=== PATIENT | female | born 1985 | race Caucasian/White ===

== ENCOUNTER → 2018-07-14 | Outpatient (REF) | payer OTHER ==
[2018-07-14 18:45] LABS: HEMATOCRIT 41.2 % (36.0-47.0); HEMOGLOBIN 13.9 g/dl (12.0-15.5); MEAN CORPUSCULAR HEMOGLOBIN 28.7 pg (27.0-33.0); MEAN CORPUSCULAR HGB CONC 33.7 g/dl (32.0-36.5); MEAN CORPUSCULAR VOLUME 84.9 fl (80.0-96.0); PLATELET COUNT, AUTOMATED 242 10^3/uL (150-450); RED BLOOD COUNT 4.85 10^6/uL (4.00-5.40); RED CELL DISTRIBUTION WIDTH 12.7 % (11.5-14.5); WHITE BLOOD COUNT 9.4 10^3/uL (4.0-10.0)
[2018-07-14 19:19] LABS: HCG, SERUM QUANTITATIVE 185906 MIU/ML
[2018-07-15 12:49] LABS: HBsAg Prenatal NEGATIVE (NEGATIVE)
[2018-07-15 13:17] LABS: HEPATITIS C VIRUS ABY INDEX 0.2 INDEX (<0.8)
[2018-07-15 13:17] LABS: HIV 1&2 SCREEN CENTAUR NEGATIVE (NEGATIVE)
[2018-07-15 13:50] LABS: RUBELLA IgG QUALITATIVE IMMUNE (IMMUNE)
== END ==
LOC: M LAB REF 17:24
DX: O36.80X0 Pregnancy with inconclusive fetal viability, not applicable or unspecified (principal); Z32.01 Encounter for pregnancy test, result positive

== ENCOUNTER → 2018-12-01 | Outpatient (CLI) | payer OTHER ==
[2018-12-01 13:03] LABS: HEMATOCRIT 33.1 % (36.0-47.0); HEMOGLOBIN 11.3 g/dl (12.0-15.5); MEAN CORPUSCULAR HEMOGLOBIN 29.2 pg (27.0-33.0); MEAN CORPUSCULAR HGB CONC 34.1 g/dl (32.0-36.5); MEAN CORPUSCULAR VOLUME 85.5 fl (80.0-96.0); PLATELET COUNT, AUTOMATED 210 10^3/uL (150-450); RED BLOOD COUNT 3.87 10^6/uL (4.00-5.40)
== END ==
LOC: M LAB 10:52
PROVIDERS: ATTEND Obstetrics & Gynecology
DX: Z34.02 Encounter for supervision of normal first pregnancy, second trimester (principal); Z36.89 Encounter for other specified antenatal screening

== ENCOUNTER → 2019-01-26 | Outpatient (REF) | payer OTHER | LOC: M LAB REF 17:05 | PROVIDERS: ATTEND Obstetrics & Gynecology | DX: Z34.03 Encounter for supervision of normal first pregnancy, third trimester (principal); Z3A.00 Weeks of gestation of pregnancy not specified ==

== ENCOUNTER → 2019-02-04 | Outpatient (REF) | payer OTHER | LOC: M LAB REF 17:26 | PROVIDERS: ATTEND Obstetrics & Gynecology | DX: Z34.03 Encounter for supervision of normal first pregnancy, third trimester (principal) ==

== ENCOUNTER 2019-03-01 00:48 | Inpatient (IN) | payer OTHER ==
[2019-03-01] VITALS (29 sets, daily range): BP systolic 94–153; BP diastolic 50–93
[~2019-03-01] VITALS: Ht 165.1 cm; Wt 88.2 kg
[2019-03-01] MEDS ORDERED: PNV1TABL5 PO (01:06)
[2019-03-01] MEDS ORDERED: LACTATED RINGER'S 1000 ML IV STA (01:29)
[2019-03-01 02:25] LABS: HEMATOCRIT 32.9 % (36.0-47.0); MEAN CORPUSCULAR HEMOGLOBIN 28.9 pg (27.0-33.0); MEAN CORPUSCULAR HGB CONC 33.4 g/dl (32.0-36.5); MEAN CORPUSCULAR VOLUME 86.4 fl (80.0-96.0); PLATELET COUNT, AUTOMATED 163 10^3/uL (150-450); RED BLOOD COUNT 3.81 10^6/uL (4.00-5.40); WHITE BLOOD COUNT 12.4 10^3/uL (4.0-10.0)
[2019-03-01] MEDS ORDERED: FENTANYL 2MCG/ML ROPIVACAINE 0.2% IN 0.9% NACL 100ML IVBAG As Ordered ONE (02:43)
[2019-03-01] MEDS ORDERED: NALOXONE INJ 0.4 MG/1 ML VIAL (J2310) IV PRN (03:48)
[2019-03-01] MEDS ORDERED: FENTANYL/ROPIVACAINE/NACL BAG 100 ML EPIDURAL SCH (03:48)
[2019-03-01] MEDS ORDERED: EPIDURAL COMMENT XX SCH (03:48)
[2019-03-01] MEDS ORDERED: diphenhydrAMINE INJ 50MG/ML VIAL (J1200) IV PRN (03:48)
[2019-03-01] MEDS ORDERED: EPIDURAL/PCA KEYS XX PRN (03:48)
[2019-03-01] MEDS ORDERED: ONDANSETRON 4MG/2ML VIAL (J2405) IV PRN (03:48)
[2019-03-01] MEDS ORDERED: REFRIGERATOR IV KEYS XX PRN (03:48)
[2019-03-01] MEDS ORDERED: LACTATED RINGER'S 1000 ML IV PRN (03:48)
[2019-03-01] MEDS: ePHEDrine SULFATE 25 MG/5 ML(5MG/ML) SYRINGE IV PRN ×2 (06:42→06:55)
[2019-03-01] MEDS ORDERED: LR 1,000 ML IV SCH (07:30)
[2019-03-01] MEDS ORDERED: OXYTOCIN 30 UNITS IN 0.9% NaCl 500ML IV BAG (J2590) As Ordered ONE (08:09)
[2019-03-01] MEDS ORDERED: OXYTOCIN DRIP 30 UNITS in APPROPRIATE DILUENT 1 EA IV SCH ×2 (08:30→10:01)
--- NOTE | 2019-03-01 09:05 | HPE ---
DATE OF ADMISSION: 03/01/2019 Charlotte is a 33-year-old female 1, para 0 with an estimated date of confinement (EDC) of 02/23/2019, estimated gestational age (EGA) 41 and 2/7 weeks gestation who presented to labor and delivery with gross rupture of membranes. Upon evaluation, she was found to be in early labor. At this point the decision was made for admission. Her record reviewed which was essentially unremarkable. Her lab blood type is A+, rubella immune, hepatitis negative, HIV negative, GC, chlamydia negative, 1-hour sugar testing was within normal limits. Her GBS is negative. PAST MEDICAL HISTORY: Denies. PAST SURGICAL HISTORY: Ransom tooth extraction. SOCIAL HISTORY: She is . Denies any alcohol, drug or cigarette smoking. REVIEW OF SYSTEMS: Unremarkable. MEDICATIONS: vitamins. ALLERGIES: NO KNOWN DRUG ALLERGIES. PHYSICAL EXAMINATION: Obese female in no acute distress. Abdomen: Soft, nontender, nondistended. Extremities: No clubbing, cyanosis or edema. Vaginal exam: Gross rupture of membranes clear fluid. Cervix is 2-3 cm dilated, 80% effaced, fetus at -2 station in vertex position. Tracing reviewed, category 1 tracing contractions every 3-4 minutes. ASSESSMENT: Intrauterine at 41+ weeks gestation with spontaneous rupture of membranes and early labor. PLAN: Admit to labor and delivery. Routine labs sent. Pain management discussed. The patient opts for an epidural. Will continue to monitor. Anticipate delivery.
[2019-03-01 10:11] LABS: CORD GAS ABE A -3.9; CORD GAS HCO3 A 23.8 MEQ/L; CORD GAS O2 SAT A 33.5 %; CORD GAS PCO2 A 53.1 mmHg; CORD GAS PH A 7.269 UNITS; CORD GAS PO2 A 18.8 mmHg; CORD GAS SBC A 19.7 MEQ/L; CORD GAS TCO2 A 25.4 MEQ/L
[2019-03-01 10:13] LABS: CORD GAS ABE V -3.5; CORD GAS HCO3 V 20.5 MEQ/L; CORD GAS O2 SAT V 74.6 %; CORD GAS PCO2 V 34.6 mmHg; CORD GAS PH V 7.391 UNITS; CORD GAS PO2 V 32.1 mmHg; CORD GAS TCO2 V 21.6 MEQ/L
[2019-03-01] MEDS ORDERED: ACETAMINOPHEN TAB 650MG DOSE (2X325MG) PO PRN (10:15)
[2019-03-01] MEDS ORDERED: DOCUSATE SODIUM 100 MG CAP PO PRN (10:15)
[2019-03-01] MEDS ORDERED: IBUPROFEN 600 MG TAB PO PRN (10:15)
[2019-03-01] MEDS ORDERED: METHYLERGONOVINE MALEATE 0.2 MG TAB PO PRN (10:15)
[2019-03-01] MEDS ORDERED: ACETAMINOPHEN 500 MG TAB PO PRN (10:15)
[2019-03-01] MEDS ORDERED: IBUPROFEN 800 MG TAB PO PRN (10:15)
[2019-03-01] MEDS ORDERED: RHOGAM 300 MCG (1500 IU) INJ (J2790) IM SCH (10:15)
[2019-03-01] MEDS ORDERED: MEASLES,MUMPS,RUBELLA VACCINE INJ (MMR-II) (90707) SC SCH (10:15)
[2019-03-01] MEDS ORDERED: DIBUCAINE 1% OINTMENT 30GM TOP PRN (10:15)
[2019-03-02 06:12] VITALS: BP 121/76
[2019-03-02] MEDS ORDERED: PRENATAL VITAMINS CHEWABLE TABLET PO SCH (09:00)
== END 2019-03-02 17:00 | disposition home or self-care (01) | DRG 560 ==
LOC: M LDO 00:48 → M LDI 01:40 → M OBS 12:17
PROVIDERS: ADMIT Obstetrics & Gynecology; ATTEND Obstetrics & Gynecology
PROC: 10E0XZZ Delivery of Products of Conception, External Approach (ICD-10-PCS; principal; 2019-03-01)
PROC: 0HQ9XZZ Repair Perineum Skin, External Approach (ICD-10-PCS; 2019-03-01)
DX: O48.0 Post-term pregnancy (principal); O70.0 First degree perineal laceration during delivery; Z37.0 Single live birth; Z3A.41 41 weeks gestation of pregnancy

== ENCOUNTER → 2019-12-02 | Outpatient (REF) | payer BC ==
[~2019-12-02] MED LIST: KP P1TAB PO
[2019-12-02 12:45] LABS: ALBUMIN 4.4 GM/DL (3.2-5.2); ALT/SGPT 21 U/L (12-78); BILIRUBIN,TOTAL 0.4 MG/DL (0.2-1.0); BLOOD UREA NITROGEN 12 MG/DL (7-18); CALCIUM LEVEL 9.1 MG/DL (8.5-10.1); CARBON DIOXIDE LEVEL 32 MEQ/L (21-32); CHLORIDE LEVEL 105 MEQ/L (98-107); CHOLESTEROL LEVEL 206 MG/DL (<200); CHOLESTEROL RISK RATIO 3.029 (<5); CREATININE FOR GFR 0.65 MG/DL (0.55-1.30); GLOMERULAR FILTRATION RATE > 60.0 (>60); GLUCOSE, FASTING 78 MG/DL (70-100); HDL CHOLESTEROL 68 MG/DL (>40); LDL CHOLESTEROL 126 MG/DL (<100); NON-HDL-C 138 MG/DL; POTASSIUM SERUM 4.1 MEQ/L (3.5-5.1); SODIUM LEVEL 140 MEQ/L (136-145); TRIGLYCERIDES LEVEL 59 MG/DL (<150)
== END ==
LOC: M SFHCPLAZ 09:44
PROVIDERS: ATTEND Family Medicine
DX: Z13.1 Encounter for screening for diabetes mellitus (principal); Z13.220 Encounter for screening for lipoid disorders

== ENCOUNTER → 2020-11-28 | Outpatient (REF) | payer BC ==
[2020-11-28 17:27] LABS: HEMATOCRIT 38.7 % (36.0-47.0); HEMOGLOBIN 12.8 g/dl (12.0-15.5); MEAN CORPUSCULAR HEMOGLOBIN 27.6 pg (27.0-33.0); MEAN CORPUSCULAR HGB CONC 33.1 g/dl (32.0-36.5); MEAN CORPUSCULAR VOLUME 83.6 fl (80.0-96.0); PLATELET COUNT, AUTOMATED 215 10^3/uL (150-450); RED BLOOD COUNT 4.63 10^6/uL (4.00-5.40); WHITE BLOOD COUNT 7.5 10^3/uL (4.0-10.0)
[2020-11-28 17:53] LABS: FREE T4 0.99 NG/DL (0.76-1.46); GLUCOSE CHALLENGE TEST 1 HOUR 83 MG/DL (LESS THAN 140)
[2020-11-28 18:06] LABS: HEMOGLOBIN A1c 5.1 %
[2020-11-28 18:36] LABS: HEPATITIS C VIRUS ABY INDEX 0.1 INDEX (<0.8); HIV 1&2 SCREEN CENTAUR NEGATIVE (NEGATIVE)
[2020-11-28 19:48] LABS: CHLAMYDIA DNA AMPLIFICATION NEGATIVE (NEGATIVE); GC DNA AMPLIFICATION NEGATIVE (NEGATIVE)
== END ==
LOC: M PLALAB 14:05
PROVIDERS: ATTEND Advanced Practice Midwife
DX: O26.891 Other specified pregnancy related conditions, first trimester (principal); Z3A.09 9 weeks gestation of pregnancy

== ENCOUNTER → 2020-12-08 | Outpatient (CLI) | payer BC | LOC: M PLALAB 12:24 | PROVIDERS: ATTEND Advanced Practice Midwife | DX: Z34.81 Encounter for supervision of other normal pregnancy, first trimester (principal); Z3A.00 Weeks of gestation of pregnancy not specified ==

== ENCOUNTER → 2020-12-25 | Outpatient (CLI) | payer BC | LOC: M WHC 15:29 | PROVIDERS: ATTEND Obstetrics & Gynecology | DX: Z3A.13 13 weeks gestation of pregnancy (principal) ==

== ENCOUNTER → 2021-01-29 | Outpatient (CLI) | payer BC | LOC: M WHC 10:46 | PROVIDERS: ATTEND Obstetrics & Gynecology | DX: Z34.82 Encounter for supervision of other normal pregnancy, second trimester (principal); Z3A.18 18 weeks gestation of pregnancy ==

== ENCOUNTER → 2021-01-29 | Outpatient (CLI) | payer BC ==
--- NOTE | 2021-01-29 11:50 | REP ---
INDICATION: ANATOMY COMPARISON: None. TECHNIQUE: Transabdominal obstetrical ultrasound with color Doppler evaluation. FINDINGS: Examination demonstrates a single live intrauterine in variable presentation. motion is identified by technologist. Placenta is noted anterior and grade 1 without evidence for placenta previa or abruption. Amniotic fluid volume is normal. Cervix measures 4.3 cm in length and appears closed.. Gestational age by LMP 18 weeks 4 days with DIO 06/28/2021. Gestational age by current measurements 18 weeks 3 days with DIO 06/29/2021. FHR equals 144 beats per minute. BPD: 4.1 cm at 18 weeks 4 days HC: 15.8 cm at 18 weeks 5 days AC: 12.9 cm at 18 weeks 3 days FL: 2.7 cm at 18 weeks 3 days HL: 2.7 cm at there is 18 weeks 3 days HC/AC: 1.23 Estimated weight 240 grams (37thpercentile). Anatomical assessment demonstrates normal structures including cranium, choroid plexus, cavum, cerebellum/posterior fossa, facial features, lungs, four-chamber heart/ventricular outflow tracts, diaphragm, stomach, cord insertion/three-vessel cord, kidneys/bladder, spine, and extremities. IMPRESSION: Single live intrauterine in variable presentation demonstrating appropriate estimated weight. Anatomical assessment is complete and normal. <Electronically signed by Titus Lucas > 01/29/21 0069
== END ==
LOC: M WHC 10:05
PROVIDERS: ATTEND Obstetrics & Gynecology
DX: Z34.82 Encounter for supervision of other normal pregnancy, second trimester (principal)

== ENCOUNTER → 2021-04-10 | Outpatient (CLI) | payer BC ==
[2021-04-10 13:49] LABS: HEMATOCRIT 34.5 % (36.0-47.0); HEMOGLOBIN 10.9 g/dl (12.0-15.5); MEAN CORPUSCULAR HEMOGLOBIN 27.6 pg (27.0-33.0); MEAN CORPUSCULAR HGB CONC 31.6 g/dl (32.0-36.5); MEAN CORPUSCULAR VOLUME 87.3 fl (80.0-96.0); PLATELET COUNT, AUTOMATED 179 10^3/uL (150-450); RED BLOOD COUNT 3.95 10^6/uL (4.00-5.40); WHITE BLOOD COUNT 6.9 10^3/uL (4.0-10.0)
== END ==
LOC: M PLALAB 11:08
PROVIDERS: ATTEND Advanced Practice Midwife
DX: Z34.82 Encounter for supervision of other normal pregnancy, second trimester (principal)

== ENCOUNTER → 2021-06-07 | Outpatient (REF) | payer BC | LOC: M SFHCWAGY 12:08 | PROVIDERS: ATTEND Advanced Practice Midwife | DX: O09.293 Supervision of pregnancy with other poor reproductive or obstetric history, third trimester (principal) ==

== ENCOUNTER → 2021-06-14 | Outpatient (CLI) | payer BC ==
--- NOTE | 2021-06-15 06:47 | REP ---
INDICATION: GROWTH COMPARISON: 01/29/2021 TECHNIQUE: Transabdominal obstetrical ultrasound with color Doppler evaluation. FINDINGS: Examination demonstrates a single live intrauterine in cephalic presentation. motion is identified by technologist. Placenta is noted anterior and grade 1 without evidence for placenta previa or abruption. Amniotic fluid volume is upper limits of normal. Selected gestational age: 30 weeks 0 days with DIO 06/28/2021. Gestational age by current measurements 39 weeks 6 days with DIO 06/15/2021. FHR equals 147 beats per minute. BPD: 9.7 cm at 39 weeks 6 days HC: 35.0 cm at 40 weeks 5 days AC: 37.8 cm at there is 41 weeks 5 days FL: 7.6 cm at 39 weeks 0 days HL: 6.5 cm at 37 weeks 5 days HC/AC: 0.92 Estimated weight 4224 grams (greater than 97thpercentile). KELLEY: 22.7 cm IMPRESSION: Single live intrauterine in cephalic presentation demonstrating greater than expected interval growth. Amniotic fluid index is upper limits of normal range. <Electronically signed by Titus Lucas > 06/15/21 0646
== END ==
LOC: M WHC 13:24
PROVIDERS: ATTEND Advanced Practice Midwife
DX: O09.293 Supervision of pregnancy with other poor reproductive or obstetric history, third trimester (principal)

== ENCOUNTER 2021-06-23 08:11 | Outpatient (CLI) | payer BC ==
[~2021-06-23] VITALS: Ht 165.1 cm; Wt 87.5 kg
[2021-06-23] MEDS ORDERED: TUMS500C PO (08:16)
[2021-06-23] MEDS ORDERED: ACET-907 PO (08:16)
[2021-06-23] MEDS ORDERED: ZYRTTAB8 PO (08:16)
[2021-06-23] MEDS ORDERED: HOME MED LIST COMPLETE! XX SCH (08:20)
[2021-06-23 08:25] VITALS: BP 109/60
[2021-06-23 08:43] VITALS: BP 103/57
--- NOTE | 2021-06-23 16:21 | IPNPDOC ---
Text Note Date of Service The patient was seen on 06/23/21. NOTE 35yo at 39w2d presents with decrease movement. No vaginal bleeding, LOF or ctx. O: vss, AF Cat 1 tracing, irregular ctx gen: well appearing A/P: 35yo at 39w2d with reassuring status -patient scheduled for induction of labor tomorrow. Offered induction today and patient declines -home with Labor precautions and [facility] -IOL tomorrow Ama Campbell MD VS,Patel, I+O VSPatel I+O Vital Signs Date Time Temp Pulse Resp B/P (MAP) Pulse Ox O2 Delivery O2 Flow Rate FiO2 06/23/21 08:43 98.0 86 20 103/57 (72) 98 Room Air AMA CAMPBELL MD. Jun 23, 2021 16:21
== END 2021-06-23 08:56 | disposition home or self-care (01) ==
LOC: M LDO 08:11
PROVIDERS: ATTEND Obstetrics & Gynecology
DX: O36.8130 Decreased fetal movements, third trimester, not applicable or unspecified (principal); Z3A.39 39 weeks gestation of pregnancy
CPT/HCPCS: 59025; G0378; G0463

== ENCOUNTER 2021-06-25 11:57 | Inpatient (IN) | payer BC ==
[~2021-06-25] VITALS: Ht 165.1 cm; Wt 87.1 kg
[2021-06-25] VITALS (23 sets, daily range): BP systolic 100–153; BP diastolic 52–85
[~2021-06-25 11:57] MED LIST changes: +ACET-907 PO; +TUMS500C PO; +ZYRTTAB8 PO
[2021-06-25] MEDS ORDERED: HOME MED LIST COMPLETE! XX SCH (12:25)
[2021-06-25] MEDS ORDERED: OXYTOCIN INJ 10 UNITS/ML VIAL (J2590) IM PRN (14:20)
[2021-06-25] MEDS ORDERED: TRANEXAMIC ACID INJection 1,000 MG in NS 100 ML IV PRN (14:20)
[2021-06-25] MEDS ORDERED: METHYLERGONOVINE MALEATE 0.2 MG/ML VIAL (J2210) IM PRN (14:20)
[2021-06-25] MEDS ORDERED: OXYTOCIN DRIP 30 UNITS in IV 1 EA IV PRN ×4 (14:20)
[2021-06-25] MEDS ORDERED: LIDOCAINE 1% MDV 20ML VIAL INFIL PRN (14:20)
[2021-06-25] MEDS ORDERED: CARBOPROST TROMETHAMINE 250 MCG/ML AMP IM PRN (14:20)
[2021-06-25] MEDS ORDERED: miSOPROStol 50MCG 1/2 TABLET PO SCH (15:00)
--- NOTE | 2021-06-25 16:26 | HPE ---
HISTORY AND PHYSICAL DATE OF ADMISSION: 06/25/2021 HISTORY: Charlotte is a 35-year-old 2, para 1-0-0-1 at 39 weeks and two days with an EDC of 06/28/2021 based on last menstrual period and confirmed by first trimester ultrasound. She presents for induction of labor today per consult with Dr. Arlen Ortiz due to macrosomia. She denies vaginal bleeding, leakage of fluid and regular painful contractions. The fetus has been active. care was initiated at [facility] in the first trimester. course was complicated by anxiety, a history of a large for gestational age fetus, polyhydramnios. OBSTETRIC HISTORY: March 01, 2019, 41 weeks and 2 days gestation, 9 pound, 8 ounce female, vaginal delivery, uncomplicated. OBSTETRIC LABS: A+, antibody screen negative, syphilis negative, gonorrhea and chlamydia negative, hepatitis B surface antigen negative, hepatitis C antibody nonreactive, HIV negative. Rubella immune. Urine culture no growth. Gestational diabetic screening 81 and GBS is negative. PAST MEDICAL HISTORY: Abnormal Pap smear, colposcopy, allergic rhinitis and anxiety. SURGICAL HISTORY: None. FAMILY HISTORY: Myocardial infarction, depression, cervical cancer, cardiomegaly, oral cancer, hypertension. SOCIAL HISTORY: The patient is . She is a nonsmoker. Denies alcohol and drug use. No history of sexually transmitted infections. She denies history of abuse, physical, sexual, and emotional. ALLERGIES: No known drug allergies. CURRENT MEDICATIONS: vitamin. OBJECTIVE: Vital signs: Temperature 98.7, pulse 125, blood pressure of 122/77. General: She is alert and oriented times three, smiling and talkative. The heart rate is 130 with moderate variability, positive accelerations, negative decelerations, contractions every five minutes, palpate mild. Her abdomen is gravid, cephalic presentation which was confirmed again with bedside ultrasound. Estimated weight 4500 gm. Sterile vaginal exam: 1 cm dilated, 50% effaced, ballotable station, posterior, soft. ASSESSMENT: Intrauterine at 39 and 2/7 weeks. heart rate is category 1. Large for gestational age fetus. PLAN: Admit the patient to labor and delivery. Out of bed ad dk. Saline lock, regular diet at this time. I plan to start misoprostol 50 mcg by mouth for cervical ripening. Routine laboratories have been ordered. Risks, benefits, and alternatives have been reviewed with the patient and her . All of their questions have been answered. She has been verbally consented for emergency surgery and blood products if they are necessary. I do anticipate cervical ripening, labor, and a vaginal delivery.
[2021-06-25] MEDS ORDERED: LR 1,000 ML IV SCH (18:45)
[2021-06-25] MEDS ORDERED: OXYTOCIN DRIP 30 UNITS in IV 1 EA IV SCH ×2 (18:45→23:15)
[2021-06-25] MEDS ORDERED: LACTATED RINGER'S 1000 ML IV ONE (18:50)
[2021-06-25 18:59] LABS: HEMATOCRIT 34.6 % (36.0-47.0); HEMOGLOBIN 11.2 g/dl (12.0-15.5); MEAN CORPUSCULAR HEMOGLOBIN 27.5 pg (27.0-33.0); MEAN CORPUSCULAR HGB CONC 32.4 g/dl (32.0-36.5); MEAN CORPUSCULAR VOLUME 84.8 fl (80.0-96.0); PLATELET COUNT, AUTOMATED 170 10^3/uL (150-450); RED BLOOD COUNT 4.08 10^6/uL (4.00-5.40); WHITE BLOOD COUNT 9.4 10^3/uL (4.0-10.0)
[2021-06-25] MEDS ORDERED: FENTANYL 2MCG/ML ROPIVACAINE 0.2% IN 0.9% NACL 100ML IVBAG As Ordered ONE (19:14)
[2021-06-25] MEDS ORDERED: ONDANSETRON 4MG/2ML VIAL IV PRN (20:50)
[2021-06-25] MEDS ORDERED: REFRIGERATOR IV KEYS XX PRN (20:50)
[2021-06-25] MEDS ORDERED: FENTANYL/ROPIVACAINE/NACL BAG 100 ML EPIDURAL SCH (20:50)
[2021-06-25] MEDS ORDERED: EPIDURAL COMMENT XX SCH (20:50)
[2021-06-25] MEDS ORDERED: EPIDURAL/PCA KEYS XX PRN (20:50)
[2021-06-25] MEDS ORDERED: diphenhydrAMINE 50MG/ML VIAL (J1200) IV PRN (20:50)
[2021-06-25] MEDS ORDERED: LACTATED RINGER'S 1000 ML IV PRN (20:50)
[2021-06-25] MEDS ORDERED: NALOXONE INJ 0.4MG/1ML VIAL (J2310 PER 1MG) IV PRN (20:50)
[2021-06-25] MEDS ORDERED: ePHEDrine SULFATE 25 MG/5 ML(5MG/ML) SYRINGE IV PRN (20:50)
[2021-06-25] MEDS ORDERED: IBUPROFEN 800 MG TAB PO PRN (23:15)
[2021-06-25] MEDS ORDERED: DIBUCAINE 1% OINTMENT 30GM TOP PRN (23:15)
[2021-06-25] MEDS ORDERED: DOCUSATE SODIUM 100MG CAPSULE PO PRN (23:15)
[2021-06-25] MEDS ORDERED: MEASLES,MUMPS,RUBELLA VACCINE INJ (MMR-II) (90707) SC SCH (23:15)
[2021-06-25] MEDS ORDERED: RHOGAM 300 MCG (1500 IU) INJ (J2790) IM SCH (23:15)
[2021-06-25] MEDS ORDERED: ACETAMINOPHEN TAB 650MG DOSE (2X325MG) PO PRN (23:15)
[2021-06-25] MEDS ORDERED: ACETAMINOPHEN 500 MG TAB PO PRN (23:15)
[2021-06-25] MEDS ORDERED: IBUPROFEN 600MG TAB PO PRN (23:15)
[2021-06-25] MEDS ORDERED: METHYLERGONOVINE MALEATE 0.2 MG TAB PO PRN (23:15)
[2021-06-26 00:28] VITALS: BP 140/73
[2021-06-26 02:00] VITALS: BP 124/68
[2021-06-26 05:45] VITALS: BP 112/63
--- NOTE | 2021-06-26 07:29 | DN ---
DELIVERY NOTE DATE OF DELIVERY: 06/26/2021 TIME OF : GENDER: APGARS: LACERATIONS: ANESTHESIA: ESTIMATED BLOOD LOSS: COUNTS: DESCRIPTION OF DELIVERY: Charlotte is a 35-year-old 2 para 2-0-0-2 now who was admitted to labor and delivery for induction of labor due to macrosomia. One dose of misoprostol and IV Pitocin was used and labor did ensue. She utilized an epidural for her labor coping. She reached complete dilation at 2233. She pushed to a normal spontaneous vaginal delivery of a live male in OA position with restitution to ROT position at 2243. There was no nuchal cord. The shoulders delivered with gentle downward traction and the corpus immediately followed. The 's mouth and nares was bulb suctioned and he was placed on the maternal abdomen crying and active. The cord was clamped times two once pulsations ceased and cut by the father of the baby under my direction. Spontaneous expulsion of an intact placenta with three-vessel cord by Trejo mechanism was at 2248. Uterine hemostasis achieved with IV Pitocin rapid infusion and uterine fundal massage. Estimated blood loss: 400 mL. Perineum and vagina inspected and noted to have a 1st-degree midline laceration. The laceration was repaired with 3-0 Vicryl Rapide in the usual fashion. The male weighed 9 pounds 10 ounces (4360 grams); Apgars 8 and 9. Mom is going to breast fed her son, and the family has named him Tadhg. At the close of delivery, lap counts, needle counts and instrument counts were correct and verified. [facility]
[2021-06-26] MEDS: PRENATAL VITAMINS CHEWABLE TABLET PO SCH (07:54)
--- NOTE | 2021-06-26 10:19 | IPNPDOC ---
Progress Note Date of Service: Jun 26, 2021 Day#: 1 Progress Note SUBJECT: Doing well without complaints. Ambulating, voiding and pain is well- controlled. Reports minimal lochia. OBJECTIVE: VITAL SIGNS: Within normal limits, afebrile. Alert and oriented times three. Abdomen: Fundus firm at U-2. Soft, NTTP. Ext: neg calf tenderness. ASSESSMENT: day #1 status post . Recovering in stable condition. PLAN: 1. Continue routine care 2. Discharge plans for tomorrow VS, I&O, 24H, Fishbone Vital Signs/I&O Vital Signs Date Time Temp Pulse Resp B/P (MAP) Pulse Ox O2 Delivery O2 Flow Rate FiO2 06/26/21 05:45 97.5 82 16 112/63 (79) 97 Room Air I&O- Last 24 Hours up to 6 AM 06/26/21 06:00 Intake Total 1828 ml Output Total 1100 ml Balance 728 ml Laboratory Data 24H LABS Laboratory Tests 2 06/25/21 12:03: Serology Scanned Report Hepatitis B Testing 06/25/21 13:08: Nucleated Red Blood Cells % (auto) 0.0, Syphilis Serology NONREACTIVE CBC/BMP Laboratory Tests 06/25/21 13:08 VALERIA CONTRERAS MD. Jun 26, 2021 10:19
[2021-06-26 18:00] VITALS: BP 141/78
[2021-06-27 05:54] VITALS: BP 113/67
[2021-06-27] MEDS: PRENATAL VITAMINS CHEWABLE TABLET PO SCH (11:22)
== END 2021-06-27 12:30 | disposition home or self-care (01) | DRG 560 ==
LOC: M LDI 11:57 → M OBS 06-26 00:16
PROVIDERS: ADMIT Advanced Practice Midwife; ATTEND Advanced Practice Midwife
PROC: 3E033VJ Introduction of Other Hormone into Peripheral Vein, Percutaneous Approach (ICD-10-PCS; 2021-06-25)
PROC: F13Z0ZZ Hearing Screening Assessment (ICD-10-PCS; 2021-06-25)
PROC: 10E0XZZ Delivery of Products of Conception, External Approach (ICD-10-PCS; principal; 2021-06-26)
PROC: 0HQ9XZZ Repair Perineum Skin, External Approach (ICD-10-PCS; 2021-06-26)
DX: O36.60X0 Maternal care for excessive fetal growth, unspecified trimester, not applicable or unspecified (principal); O70.0 First degree perineal laceration during delivery; Z37.0 Single live birth; Z3A.39 39 weeks gestation of pregnancy

== ENCOUNTER → 2021-12-25 | Outpatient (REF) | payer OTHER | LOC: M PLALAB 13:00 | PROVIDERS: ATTEND Advanced Practice Midwife | DX: R87.615 Unsatisfactory cytologic smear of cervix (principal); Z12.4 Encounter for screening for malignant neoplasm of cervix | CPT/HCPCS: 87624; G0123 ==

== ENCOUNTER → 2022-02-06 | Outpatient (CLI) | payer OTHER | LOC: M WHC 14:26 | PROVIDERS: ATTEND Family Medicine | DX: R22.32 Localized swelling, mass and lump, left upper limb (principal) ==

== ENCOUNTER → 2022-03-21 | Outpatient (CLI) | payer OTHER | LOC: M SOG 09:39 | PROVIDERS: ATTEND Physician Assistant | DX: M67.432 Ganglion, left wrist (principal) ==

== ENCOUNTER → 2023-01-28 | Outpatient (CLI) | payer OTHER ==
[2023-01-28 10:27] LABS: BASO % 0.6 % (0.0-1.0); EOS # 0.2 10^3/uL (0.0-0.5); EOS % 3.3 % (0.0-3.0); HEMATOCRIT 40.5 % (36.0-47.0); HEMOGLOBIN 13.1 g/dl (12.0-15.5); LYMPH # 2.1 10^3/uL (1.5-5.0); LYMPH % 43.1 % (24.0-44.0); MEAN CORPUSCULAR HEMOGLOBIN 27.8 pg (27.0-33.0); MEAN CORPUSCULAR HGB CONC 32.3 g/dl (32.0-36.5); MEAN CORPUSCULAR VOLUME 85.8 fl (80.0-96.0); MONO # 0.3 10^3/uL (0.0-0.8); MONO % 5.7 % (2.0-8.0); NEUTROPHILS # 2.3 10^3/uL (1.5-8.5); NEUTROPHILS % 47.1 % (36.0-66.0); PLATELET COUNT, AUTOMATED 230 10^3/uL (150-450); RED BLOOD COUNT 4.72 10^6/uL (4.00-5.40); WHITE BLOOD COUNT 4.9 10^3/uL (4.0-10.0)
[2023-01-28 10:30] LABS: IRON (FE) 51 UG/DL (50-170); PERCENT SATURATION 18.6 % (13.2-45.0); TOTAL IRON BINDING CAPACITY 274 UG/DL (250-425)
[2023-01-28 10:34] LABS: ALBUMIN 4.3 G/DL (3.2-5.2); ALKALINE PHOSPHATASE 57 U/L (46-116); ALT/SGPT 21 U/L (7.0-40); AST/SGOT 15 U/L (<34); BILIRUBIN,TOTAL 0.3 MG/DL (0.3-1.2); BLOOD UREA NITROGEN 14 MG/DL (9-23); CALCIUM LEVEL 8.9 MG/DL (8.5-10.1); CARBON DIOXIDE LEVEL 26 MMOL/L (20-31); CHLORIDE LEVEL 107 MMOL/L (98-107); CHOLESTEROL LEVEL 143 MG/DL (<200); CHOLESTEROL RISK RATIO 2.98 (<5); CREATININE FOR GFR 0.62 MG/DL (0.55-1.30); GLOMERULAR FILTRATION RATE > 60.0 (>60); GLUCOSE, FASTING 82 MG/DL (60-100); HDL CHOLESTEROL 47.9 MG/DL (>40); LDL CHOLESTEROL 82.1 MG/DL (<100); NON-HDL-C 95.1 MG/DL; POTASSIUM SERUM 4.4 MMOL/L (3.5-5.1); SODIUM LEVEL 139 MMOL/L (136-145); TOTAL PROTEIN 7.7 G/DL (5.7-8.2); TRIGLYCERIDES LEVEL 65 MG/DL (<150)
[2023-01-28 10:38] LABS: FREE T4 0.97 NG/DL (0.89-1.76); THYROID STIMULATING HORMONE 6.246 uIU/ML (0.55-4.78)
== END ==
LOC: M PLALAB 07:53
PROVIDERS: ATTEND Physician Assistant
DX: Z13.29 Encounter for screening for other suspected endocrine disorder (principal); E78.5 Hyperlipidemia, unspecified; E61.1 Iron deficiency; E55.9 Vitamin D deficiency, unspecified; F41.1 Generalized anxiety disorder

== ENCOUNTER → 2023-05-26 | Outpatient (REF) | payer OTHER | LOC: M SFHCWAGY 13:24 | PROVIDERS: ATTEND Advanced Practice Midwife | DX: Z12.4 Encounter for screening for malignant neoplasm of cervix (principal) ==

== ENCOUNTER → 2023-09-12 | Outpatient (CLI) | payer OTHER ==
[2023-09-12 11:34] LABS: BASO % 0.8 % (0.0-1.0); EOS # 0.1 10^3/uL (0.0-0.5); EOS % 2.8 % (0.0-3.0); HEMATOCRIT 39.8 % (36.0-47.0); LYMPH # 1.6 10^3/uL (1.5-5.0); LYMPH % 44.6 % (24.0-44.0); MEAN CORPUSCULAR HEMOGLOBIN 27.8 pg (27.0-33.0); MEAN CORPUSCULAR HGB CONC 32.7 g/dl (32.0-36.5); MEAN CORPUSCULAR VOLUME 85.2 fl (80.0-96.0); MONO # 0.2 10^3/uL (0.0-0.8); MONO % 6.3 % (2.0-8.0); NEUTROPHILS # 1.6 10^3/uL (1.5-8.5); NEUTROPHILS % 45.2 % (36.0-66.0); PLATELET COUNT, AUTOMATED 238 10^3/uL (150-450); RED BLOOD COUNT 4.67 10^6/uL (4.00-5.40); WHITE BLOOD COUNT 3.6 10^3/uL (4.0-10.0)
[2023-09-12 12:04] LABS: IRON (FE) 38 UG/DL (50-170)
[2023-09-12 12:05] LABS: ALBUMIN 4.1 G/DL (3.2-5.2); ALKALINE PHOSPHATASE 42 U/L (46-116); ALT/SGPT 21 U/L (7.0-40); AST/SGOT 21 U/L (<34); BILIRUBIN,TOTAL 0.5 MG/DL (0.3-1.2); BLOOD UREA NITROGEN 15 MG/DL (9-23); CALCIUM LEVEL 9.2 MG/DL (8.5-10.1); CARBON DIOXIDE LEVEL 28 MMOL/L (20-31); CHLORIDE LEVEL 106 MMOL/L (98-107); CHOLESTEROL LEVEL 177 MG/DL (<200); CHOLESTEROL RISK RATIO 2.74 (<5); CREATININE FOR GFR 0.59 MG/DL (0.55-1.30); GLOMERULAR FILTRATION RATE > 60.0 (>60); GLUCOSE, FASTING 87 MG/DL (60-100); HDL CHOLESTEROL 64.4 MG/DL (>40); LDL CHOLESTEROL 104.8 MG/DL (<100); NON-HDL-C 112.6 MG/DL; PERCENT SATURATION 12.3 % (13.2-45.0); POTASSIUM SERUM 4.9 MMOL/L (3.5-5.1); SODIUM LEVEL 142 MMOL/L (136-145); TOTAL IRON BINDING CAPACITY 308 UG/DL (250-425); TOTAL PROTEIN 7.5 G/DL (5.7-8.2); TRIGLYCERIDES LEVEL 39 MG/DL (<150)
[2023-09-12 12:06] LABS: FREE T4 1.11 NG/DL (0.89-1.76); VITAMIN B12 LEVEL 499 PG/ML (211-911)
[2023-09-12 12:07] LABS: FERRITIN 6.6 NG/ML (7.3-270.7); THYROID STIMULATING HORMONE 4.821 uIU/ML (0.55-4.78); TOTAL 25(OH) VITAMIN D 22.9 NG/ML (20.0-100.0)
== END ==
LOC: M PLALAB 07:22
PROVIDERS: ATTEND Physician Assistant
DX: F41.1 Generalized anxiety disorder (principal); E61.1 Iron deficiency; E55.9 Vitamin D deficiency, unspecified; Z13.29 Encounter for screening for other suspected endocrine disorder

== ENCOUNTER 2023-09-29 08:16 | Outpatient (CLI) | payer OTHER ==
[~2023-09-29] VITALS: Ht 165.1 cm; Wt 67.7 kg
[~2023-09-29 08:16] MED LIST changes: +ALBUTEROL SULFATE 2.5MG/0.5ML INH NEB SOLN INH PRN; +EPINEPHrine INJ 1 MG/ML 1ML AMP IM PRN; +diphenhydrAMINE 50MG/ML VIAL IV PRN; +methylPREDNISolone 125MG 2ML VIAL IV PRN
[2023-09-29 08:58] VITALS: BP 111/72; O2SAT 100
[2023-09-29] MEDS ORDERED: NS 1,000 ML IV SCH (09:00)
[2023-09-29] MEDS ORDERED: FERRIC CARBOXYMALTOSE INJ 750 MG in NS 250 ML (>50kg) IV ONE ×3 (09:00)
[2023-09-29] MEDS ORDERED: CONC18TA14 PO (09:11)
[2023-09-29] MEDS ORDERED: B-12100010 PO (09:15)
[2023-09-29] MEDS ORDERED: IRON1TAB2 PO (09:15)
[2023-09-29 11:05] VITALS: BP 106/70; O2SAT 100
== END 2023-09-29 11:05 ==
LOC: M INFU 08:16
PROVIDERS: ATTEND Physician Assistant
DX: D50.9 Iron deficiency anemia, unspecified (principal)
CPT/HCPCS: 96365; 96366; J1439

== ENCOUNTER → 2023-11-21 | Outpatient (CLI) | payer BC ==
[~2023-11-21] MED LIST changes: -ALBUTEROL SULFATE 2.5MG/0.5ML INH NEB SOLN INH PRN; +B-12100010 PO; +CONC18TA14 PO; -EPINEPHrine INJ 1 MG/ML 1ML AMP IM PRN; +IRON1TAB2 PO; -diphenhydrAMINE 50MG/ML VIAL IV PRN; -methylPREDNISolone 125MG 2ML VIAL IV PRN
[2023-11-21 12:59] LABS: BASO # 0.1 10^3/uL (0.0-0.2); BASO % 1.1 % (0.0-1.0); EOS # 0.1 10^3/uL (0.0-0.5); EOS % 1.5 % (0.0-3.0); HEMATOCRIT 39.2 % (36.0-47.0); HEMOGLOBIN 12.9 g/dl (12.0-15.5); MEAN CORPUSCULAR HEMOGLOBIN 28.5 pg (27.0-33.0); MEAN CORPUSCULAR HGB CONC 32.9 g/dl (32.0-36.5); MEAN CORPUSCULAR VOLUME 86.5 fl (80.0-96.0); MONO # 0.2 10^3/uL (0.0-0.8); MONO % 4.7 % (2.0-8.0); NEUTROPHILS # 2.3 10^3/uL (1.5-8.5); NEUTROPHILS % 50.5 % (36.0-66.0); PLATELET COUNT, AUTOMATED 236 10^3/uL (150-450); RED BLOOD COUNT 4.53 10^6/uL (4.00-5.40); WHITE BLOOD COUNT 4.6 10^3/uL (4.0-10.0)
[2023-11-21 13:31] LABS: FREE T4 1.12 NG/DL (0.89-1.76); PERCENT SATURATION 36.8 % (13.2-45.0); THYROID STIMULATING HORMONE 2.936 uIU/ML (0.55-4.78)
[2023-11-21 13:32] LABS: FERRITIN 151.5 NG/ML (7.3-270.7)
== END ==
LOC: M PLALAB 11:50
PROVIDERS: ATTEND Physician Assistant
DX: D50.9 Iron deficiency anemia, unspecified (principal); R79.89 Other specified abnormal findings of blood chemistry

== ENCOUNTER → 2024-01-30 | Outpatient (CLI) | payer BC | LOC: M WHC 07:18 | PROVIDERS: ATTEND Advanced Practice Midwife | DX: R10.2 Pelvic and perineal pain (principal) ==

== ENCOUNTER → 2024-06-21 | Outpatient (REF) | payer BC ==
[2024-06-23 18:59] LABS: HPV APTIMA Detected (Not Detected)
== END ==
LOC: M SFHCWAGY 17:50
PROVIDERS: ATTEND Advanced Practice Midwife
DX: Z12.4 Encounter for screening for malignant neoplasm of cervix (principal)
CPT/HCPCS: 87624; G0123

== ENCOUNTER → 2024-07-12 | Outpatient (REF) | payer BC | LOC: M SFHCWAGY 17:43 | PROVIDERS: ATTEND Obstetrics & Gynecology | DX: R87.810 Cervical high risk human papillomavirus (HPV) DNA test positive (principal) ==

== ENCOUNTER → 2024-08-17 | Outpatient (REF) | payer BC | LOC: M SFHCPLAZ 13:15 | PROVIDERS: ATTEND Family Medicine | DX: R05.1 Acute cough (principal) ==

== ENCOUNTER → 2025-04-27 | Outpatient (CLI) | payer OTHER ==
[2025-04-27 17:23] LABS: BASO # 0.0 10^3/uL (0.0-0.2); BASO % 0.7 % (0.0-1.0); EOS # 0.1 10^3/uL (0.0-0.5); EOS % 2.4 % (0.0-3.0); LYMPH # 2.2 10^3/uL (1.5-5.0); LYMPH % 48.0 % (24.0-44.0); MONO # 0.3 10^3/uL (0.0-0.8); MONO % 6.1 % (2.0-8.0); NEUTROPHILS # 1.9 10^3/uL (1.5-8.5); NEUTROPHILS % 42.6 % (36.0-66.0); PLATELET COUNT, AUTOMATED 212 10^3/uL (150-450)
[2025-04-27 18:01] LABS: TOTAL 25(OH) VITAMIN D 40.2 NG/ML (20.0-100.0)
[2025-04-27 18:02] LABS: ALT/SGPT 21 U/L (7.0-40); AST/SGOT 25 U/L (<34); CALCIUM LEVEL 9.1 MG/DL (8.5-10.1); CARBON DIOXIDE LEVEL 27 MMOL/L (20-31); CHLORIDE LEVEL 105 MMOL/L (98-107); CHOLESTEROL LEVEL 171 MG/DL (<200); CHOLESTEROL RISK RATIO 2.25 (<5); CREATININE FOR GFR 0.68 MG/DL (0.55-1.30); GLOMERULAR FILTRATION RATE > 90.0 (>60); LDL CHOLESTEROL 84.4 MG/DL (<100); NON-HDL-C 95.0 MG/DL; POTASSIUM SERUM 4.4 MMOL/L (3.5-5.1); SODIUM LEVEL 143 MMOL/L (136-145); TRIGLYCERIDES LEVEL 53 MG/DL (<150)
== END ==
LOC: M PLALAB 13:32
PROVIDERS: ATTEND Family Medicine
DX: D50.9 Iron deficiency anemia, unspecified (principal); E78.5 Hyperlipidemia, unspecified; E55.9 Vitamin D deficiency, unspecified; R10.9 Unspecified abdominal pain

== ENCOUNTER → 2025-05-18 | Outpatient (CLI) | payer OTHER ==
[~2025-05-18] MED LIST changes: +ISOVUE-370 76% 100 ML VIAL ONE
== END ==
LOC: M PLAIMG 13:10
PROVIDERS: ATTEND Family Medicine
DX: R10.9 Unspecified abdominal pain (principal); D64.9 Anemia, unspecified; Z80.0 Family history of malignant neoplasm of digestive organs; R93.3 Abnormal findings on diagnostic imaging of other parts of digestive tract
CPT/HCPCS: 74177; Q9967

== ENCOUNTER → 2025-09-30 | Outpatient (CLI) | payer OTHER ==
[~2025-09-30] MED LIST changes: -ISOVUE-370 76% 100 ML VIAL ONE
[2025-09-30 16:29] LABS: IRON (FE) 74.0 UG/DL (50-170); PERCENT SATURATION 25.0 % (13.2-45.0)
[2025-09-30 16:58] LABS: FREE T4 1.19 NG/DL (0.89-1.76)
== END ==
LOC: M PLALAB 13:43
PROVIDERS: ATTEND Family Medicine
DX: D50.9 Iron deficiency anemia, unspecified (principal); R53.83 Other fatigue

== ENCOUNTER → 2025-09-30 | Outpatient (REF) | payer OTHER | LOC: M SFHCPLAZ 13:29 | PROVIDERS: ATTEND Family Medicine | DX: R53.83 Other fatigue (principal); D50.9 Iron deficiency anemia, unspecified; Z53.9 Procedure and treatment not carried out, unspecified reason ==